=== PATIENT | female | born 1990 | race Two or more races ===

== ENCOUNTER 2024-12-05 14:40 | Outpatient (CLI) | payer MEDICAID ==
[2024-12-05 15:00] LABS: Hematocrit 35.1 % (36.0-46.0); Hemoglobin 12.1 g/dL (12.2-16.2); Mean Corpuscular Hemoglobin 29.9 pg (28.0-32.0); Mean Corpuscular Volume 87.0 fL (80.0-100.0); Nucleated Red Blood Cells % 0.0 %
[2024-12-06 20:07] LABS: Chlamydia Trachomatis, NAA Negative (Negative); Neisseria gonorrhoeae, NAA Negative (Negative)
== END 2024-12-05 17:00 | disposition home or self-care (01) ==
LOC: LAB 14:40
DX: O09.893 Supervision of other high risk pregnancies, third trimester (principal); Z36.89 Encounter for other specified antenatal screening; Z3A.00 Weeks of gestation of pregnancy not specified
CPT/HCPCS: 36415; 85025; 86780

== ENCOUNTER 2024-12-28 09:57 | Observation (INO) | payer MEDICAID ==
[2024-12-28] MEDS ORDERED: PREN-96 PO (10:49)
--- NOTE | 2024-12-28 11:08 | DVH ---
BIOPHYSICAL PROFILE HISTORY: Low SHUKRI TECHNIQUE: Multiple transabdominal real-time grayscale sonographic images through the gravid uterus o f the fetus with duplex doppler color flow and M-mode spectral analysis FINDINGS: BIOPHYSICAL PROFILE: breathing score: 2 movement score: 2 tone score: 2 Quantitative SHUKRI score: 2 (SHUKRI: 12.9 cm.) Total score: 8/8 Single live fetus in cephalic presentation. heart rate 134 beats per minute. Anterior placenta without previa or abruption Biophysical profile score 8/8 corresponding to an HILLARY of 01/13/25 IMPRESSION: Biophysical profile score: 8/8
--- NOTE | 2024-12-28 13:59 | DVHDS2 ---
Physician Discharge Progress N Final Diagnosis: Suspected low SHUKRI, not found Operations or Procedures: Operations or Procedures NST/BPP/SHUKRI all WNL NOT in labor Condition on Discharge: Stable Disposition: Home Discharge Instructions: Diet: Regular Activity: No Restrictions, As Tolerated Follow Up/Referral: as scheduled. Medications: na Follow Up Care: Discharge Statement: "Patient was advised to return to the ER or call 911 if any headaches, dizziness, shortness of breath, chest pain, abdominal pain, bleeding, fevers, or worsening of medical condition. Patient was counseled about treatment plan, medications, possible side effects, patientverbalized understanding. All questions were answered to the best of my ability. This discharge took greater then 30 minutes in planning, reviewing documentation, counseling the patient, and discussing with other team members." Visit Coding OBGYN Date of Service: Dec 28, 2024 Billing Provider: PELON BERNARD DO BRAND MANAGER Common Visit Codes: [id number] INP/OBS CARE(MOD) BRAND MANAGER Procedure Codes: 41267-99- NON-STRESS TEST PELON BERNARD DO Dec 28, 2024 13:59
== END 2024-12-28 11:04 | disposition home or self-care (01) ==
LOC: LDRP 09:57
PROVIDERS: ADMIT Obstetrics & Gynecology; ATTEND Obstetrics & Gynecology
DX: Z36.89 Encounter for other specified antenatal screening (principal); Z3A.36 36 weeks gestation of pregnancy; Z98.890 Other specified postprocedural states; Z79.899 Other long term (current) drug therapy
CPT/HCPCS: 76819; G0378; 59025

== ENCOUNTER 2025-01-08 09:33 | Inpatient (IN) | payer MEDICAID ==
[~2025-01-08] VITALS: Ht 157.5 cm; Wt 78.9 kg
[~2025-01-08 09:33] MED LIST: PREN-96 PO
[2025-01-08] MEDS ORDERED: DERMOPLAST 60ML BOTTLE TOP PRN (10:00)
[2025-01-08] MEDS ORDERED: LIDOCAINE 2%HCL (LOCAL ANESTH.) INJ 20ML MDV IJ PRN (10:00)
[2025-01-08] MEDS ORDERED: WITCH HAZEL-GLYCERIN PAD TOP PRN (10:00)
[2025-01-08] MEDS ORDERED: BUTORPHANOL TARTRATE 2 MG/1 ML VIAL IV PRN ×2 (10:00)
[2025-01-08] MEDS ORDERED: PHISODERM TOP SOLN 240ML BTL TOP PRN (10:00)
[2025-01-08 10:40] LABS: Hematocrit 37.0 % (36.0-46.0); Hemoglobin 12.6 g/dL (12.2-16.2); Mean Corpuscular Hemoglobin 30.0 pg (28.0-32.0); Mean Corpuscular Volume 87.8 fL (80.0-100.0); Nucleated Red Blood Cells % 0.0 %
[2025-01-08 10:46] LABS: Urine Protein, UAD Negative (Negative)
[2025-01-08 10:54] LABS: Amphetamine Screen, Urine Neg (NEGATIVE); Barbiturate Scree,Urine Neg (NEGATIVE); Benzodiazephine Screen, Urine Neg (NEGATIVE); Cannabinoid Screen, Urine Neg (NEGATIVE); Cocaine Screen, Urine Neg (NEGATIVE); Opiate Scree,Urine Neg (NEGATIVE); Phencyclidine Screen, Urine Neg (NEGATIVE)
[2025-01-08 10:55] LABS: Alanine Aminotransferase 16 U/L (7-40); Albumin 4.0 g/dL (3.2-4.8); Anion Gap 10 (5-15); BUN/Creatinine Ratio 9.4 (10.0-20.0); Calcium 9.0 mg/dL (8.7-10.4); Carbon Dioxide 25 mmol/L (20-31); Chloride 104 mmol/L (98-107); Glucose 95 mg/dL (74-106); Potassium 3.8 mmol/L (3.5-5.1); Sodium 139 mmol/L (136-145); Total Protein 6.6 g/dL (5.7-8.2)
[2025-01-08 10:56] LABS: Alkaline Phosphatase 117 U/L (46-116); Bilirubin, Total 0.4 mg/dL (0.2-1.0); Blood Urea Nitrogen 6 mg/dL (9-23)
[2025-01-08 10:59] LABS: INR 0.92 (0.9-1.15); Partial Thromboplastin Time 26.4 SEC (24.5-34.5); Prothrombin Time 9.8 sec (9.3-11.8)
[2025-01-08] MEDS: LACTATED RINGER'S 1,000 ML IV SCH (11:35)
--- NOTE | 2025-01-08 14:03 | DVHHP2 ---
OB CC & HPI Date Date of Admission: Jan 08, 2025 Patient Identification: : 3 Para: 2 EDC: Jan 14, 2025 EGA: 39wks Chief Complaints: Reason for admission: induction of labor Indication for : other Admission Nurse Assessment Rev: No History of Present Complaints pt is admitted for iol for borderline low sterling,denies rom or vag bleeding Past Medical History Cardiac: No pertinent Hx Pulmonary: No pertinent Hx Central Nervous System: No pertinent Hx GI: No pertinent Hx Hemotology/Oncology: No pertinent Hx Hepatobiliary: No pertinent Hx Psychiatric: No pertinent Hx Musculoskeletal: No pertinent Hx Rheumotologic: No pertinent Hx Infectious Disease: No peritnent Hx ENT: No pertinent Hx Renal/: No pertinent Hx Endocrine: No pertinent Hx Dermatology: No pertinent Hx Past Surgical History: No pertinent Hx OB History OB History Care: Good Care Ultrasounds: Normal mid trimester US Obstetrical Complications: None Medical Complications: None Allergies: Coded Allergies: NO KNOWN ALLERGIES (Unverified , 01/08/25) Home Meds Reported Medications Vit W/ Ferrous Fumara ( One Daily) Daily Tab, 1 TAB PO DAILY, #90 TAB 3 Refills 12/28/24 Current Medications Current Medications Medications (Trade) Dose Ordered Sig/Cally Route PRN Reason Start Time Stop Time Status Last Admin Lactated Ringer's 1,000 ml @ 125 mls/hr Q8H IV 01/08/25 10:00 01/08/25 11:35 Witch Lotus (Tucks) 1 pad PRN PRN TOP PERINEAL AREA DISCOMFORT 01/08/25 10:00 Sodium Lauryl Sulfate (Phisoderm) 240 ml PRN PRN TOP PERINEAL AREA DISCOMFORT 01/08/25 10:00 Benzocaine (Dermoplast) 1 applic PRN PRN TOP PERINEAL AREA DISCOMFORT 01/08/25 10:00 Butorphanol Tartrate (Stadol Injection) 1 mg Q4HPRN PRN IV MODERATE PAIN (4-6 PAIN SCALE) 01/08/25 10:00 Butorphanol Tartrate (Stadol Injection) 2 mg Q4HPRN PRN IV SEVERE PAIN (7-10 PAIN SCALE) 01/08/25 10:00 Lidocaine HCl (Xylocaine) 20 ml ONCE PRN IJ PERINEAL AREA DISCOMFORT 01/08/25 10:00 Misoprostol (Cytotec) 50 mcg Q4HPRN PRN PO CERVICAL RIPENING 01/08/25 11:00 01/08/25 11:34 Family & Social History Family/Social History Blood Type: Unknown Rubella: unknown RPR/VDRL: Negative GBS Status: Negative HBsAG: Negative Review of Systems Constitutional: No symptom reported Ears, Nose, & Throat: No symptom reported Eyes: No symptom reported Pulmonary/Respiratory: No symptom reported Cardiovascular: No symptom reported Gastrointestinal: No symptom reported Genitourinary: No symptom reported Musculoskeletal: No symptom reported Skin: No symptom reported Psychiatric: No symptom reported Endocrine: No symptom reported Hemotologic/Lymphatic: No symptom reported OB Admission Exam Physical Exam HEENT: TMs Normal, Fontanelles Normal, Nasal Mucosa Normal, Eyes non-injected, Oropharynx Normal, PERRLA, Moist Membranes, EOMI Heart: Rhythm Normal Lungs: Clear Abdomen: Non tender Extremities: Normal Reflexes: Normal Cervical Dilatation: Fingertip Effacement: 25% Station: -2 Membranes: Intact Heart Rate: 130's Accelerations: Accelerations Present Decelerations: No Decelerations Short Term Variability: Present Finance Analyst Variability: Average (6-25) Contractions on Admission: >10 Minutes Apart Intensity: Mild OB Plan Plan Admitting Diagnosis: Induction of labor Plan: Induction Induction Methd: Misoprostol protocol Other Plan: informed consent obtained Visit Coding OBGYN Date of Service: Jan 08, 2025 Billing Provider: MERLY TREVINO DO CERTIFIED COURT INTERPRETER Common Visit Codes: [id number] OBS CARE (HIGH) CERTIFIED COURT INTERPRETER Procedure Codes: 53315-17- NON-STRESS TEST MERLY TREVINO DO Jan 08, 2025 14:02
--- NOTE | 2025-01-08 14:15 | DVHPN2 ---
Chief Complaints Patient reports: No new complaints Nursing reports: No new complaints Objective Medications Current Medications Medications (Trade) Dose Ordered Sig/Cally Route PRN Reason Start Time Stop Time Status Last Admin Benzocaine (Dermoplast) 1 applic PRN PRN TOP PERINEAL AREA DISCOMFORT 01/08/25 10:00 Butorphanol Tartrate (Stadol Injection) 1 mg Q4HPRN PRN IV MODERATE PAIN (4-6 PAIN SCALE) 01/08/25 10:00 Butorphanol Tartrate (Stadol Injection) 2 mg Q4HPRN PRN IV SEVERE PAIN (7-10 PAIN SCALE) 01/08/25 10:00 Lactated Ringer's 1,000 ml @ 125 mls/hr Q8H IV 01/08/25 10:00 01/08/25 11:35 Lidocaine HCl (Xylocaine) 20 ml ONCE PRN IJ PERINEAL AREA DISCOMFORT 01/08/25 10:00 Misoprostol (Cytotec) 50 mcg Q4HPRN PRN PO CERVICAL RIPENING 01/08/25 11:00 01/08/25 11:34 Sodium Lauryl Sulfate (Phisoderm) 240 ml PRN PRN TOP PERINEAL AREA DISCOMFORT 01/08/25 10:00 Witch Lotus (Tucks) 1 pad PRN PRN TOP PERINEAL AREA DISCOMFORT 01/08/25 10:00 Others ve-unchanged Studies Laboratory Tests 01/08/25 10:10 Test 01/08/25 10:10 Range/Units Serum Glucose 95 74-106 mg/dL Ass/Plan Assessment iol for borderline sterling Plan rec one cytotec supportive care Visit Coding OBGYN Date of Service: Jan 08, 2025 Billing Provider: MERLY TREVINO DO PHOTONICS ENGINEERING TECHNOLOGIST Common Visit Codes: [id number] OBS CARE (HIGH) PHOTONICS ENGINEERING TECHNOLOGIST Procedure Codes: 72509-34- NON-STRESS TEST MERLY TREVINO DO Jan 08, 2025 14:15
--- NOTE | 2025-01-08 19:13 | DVH ---
EXAM: US BIOPHYSICAL PROFILE HISTORY: Low SHUKRI COMPARISON: US BIOPHYSICAL PROFILE on DOS: 12/28/24 TECHNIQUE: Multiple transabdominal real-time grayscale sonographic images through the gravid uterus of the fetus with duplex Doppler color flow and M-mode spectral analysis Findings/Impression: Single live intrauterine in vertex presentation with heart rate of 141 bpm. Biophysical profile was performed with 2 points for respirations, 2 points for movement, 2 points for tone and 2 points for amniotic fluid index. Biophysical profile score of 8/8. Amniotic fluid is within normal limits with SHUKRI 11.3 cm and MVP 4.0 cm. Nuchal cord. Normal SHUKRI (5-25 cm) Normal MVP (2-8 cm)
--- NOTE | 2025-01-09 12:28 | DVHDS2 ---
Physician Discharge Progress N Final Diagnosis: failed induction 39wks Operations or Procedures: Operations or Procedures nst,labs,sono Commentary: Commentary failed induction,will go home and return in one day Condition on Discharge: Good Disposition: Home Discharge Instructions: Diet: Regular Activity: No Restrictions, As Tolerated Medications: na Follow Up Care: Specialist: 1d Discharge Statement: "Patient was advised to return to the ER or call 911 if any headaches, dizziness, shortness of breath, chest pain, abdominal pain, bleeding, fevers, or worsening of medical condition. Patient was counseled about treatment plan, medications, possible side effects, patientverbalized understanding. All questions were answered to the best of my ability. This discharge took greater then 30 minutes in planning, reviewing documentation, counseling the patient, and discussing with other team members." Visit Coding OBGYN Date of Service: Jan 08, 2025 Billing Provider: MERLY TREVINO DO LAND DEPARTMENT HEAD Common Visit Codes: [id number] OBS CARE (HIGH) LAND DEPARTMENT HEAD Procedure Codes: 37544-38- NON-STRESS TEST MELRY TREVINO DO Jan 09, 2025 12:28
== END 2025-01-08 20:05 | disposition home or self-care (01) | DRG 566 ==
LOC: LDRP 09:33
PROVIDERS: ADMIT Obstetrics & Gynecology; ATTEND Obstetrics & Gynecology
PROC: 3E0DXGC Introduction of Other Therapeutic Substance into Mouth and Pharynx, External Approach (ICD-10-PCS; principal; 2025-01-08)
DX: O41.8X30 Other specified disorders of amniotic fluid and membranes, third trimester, not applicable or unspecified (principal); O61.9 Failed induction of labor, unspecified; Z3A.39 39 weeks gestation of pregnancy
CPT/HCPCS: 36415; 59025; 76819; 80053; 80307; 81001; 85025; 85610; 85730; 86780; 86803; 86850; 86900; 86901; 94762; 96360; 96361; G0378

== ENCOUNTER 2025-01-08 23:03 | Inpatient (IN) | payer MEDICAID ==
[~2025-01-08] VITALS: Ht 160 cm; Wt 68.0 kg
[2025-01-08] MEDS ORDERED: LACT. RINGERS/OXYTOCIN 20UNITS 500 ML IV ONE ×2 (23:15→23:45)
[2025-01-08] MEDS ORDERED: NALBUPHINE HCL 10 MG/1ml INJECTION IV PRN (23:15)
[2025-01-09] MEDS ORDERED: METHYLERGONOVINE MALEATE 0.2 MG/ML AMP IM ONE (00:09)
[2025-01-09] MEDS: WITCH HAZEL-GLYCERIN PAD TOP PRN (00:56)
[2025-01-09] MEDS: PHISODERM TOP SOLN 240ML BTL TOP PRN (00:57)
[2025-01-09] MEDS: DERMOPLAST 60ML BOTTLE TOP PRN (00:57)
[2025-01-09] MEDS: LIDOCAINE 2%HCL (LOCAL ANESTH.) INJ 20ML MDV IJ PRN (00:57)
[2025-01-09] MEDS ORDERED: CARBOPROST TROMETHAMINE 250 MCG/1ML VIAL IM ONE (01:00)
[2025-01-09] MEDS: METHYLERGONOVINE MALEATE 0.2 MG/ML AMP IM ONE (01:00)
[2025-01-09] MEDS: ONDANSETRON HCL 4 MG/2 ML VIAL IV PRN (01:08)
[2025-01-09] MEDS ORDERED: DIPHENOXYLATE W/ATROPINE 2.5 MG TAB PO ONE (01:30)
[2025-01-09] MEDS ORDERED: DIPHENOXYLATE W/ATROPINE 2.5 MG TAB ONE (01:30)
--- NOTE | 2025-01-09 02:05 | DVHHP2 ---
OB CC & HPI Date Date of Admission: Jan 08, 2025 Patient Identification: : 3 Para: 2 EDC: Jan 14, 2025 EGA: 39w2d Chief Complaints: Reason for admission: active labor History of Present Complaints Shweta Andrews is a 34 year old with IUP at 39w2d presenting SROM and in active labor. Patient was IOL (01/08) for low SHUKRI that was sent home at 1945 after 2 doses of misoprostol PO and no cervical change. Patient states that her water broke around 2245 and was clear fluid. She is maryjane every 2 minutes and feeling an urge to push Past Medical History Cardiac: No pertinent Hx Pulmonary: No pertinent Hx Central Nervous System: No pertinent Hx GI: No pertinent Hx Hemotology/Oncology: No pertinent Hx Hepatobiliary: No pertinent Hx Psychiatric: No pertinent Hx Musculoskeletal: No pertinent Hx Rheumotologic: No pertinent Hx Infectious Disease: No peritnent Hx ENT: No pertinent Hx Renal/: No pertinent Hx Endocrine: No pertinent Hx Dermatology: No pertinent Hx Past Surgical History: No pertinent Hx OB History OB History Care: Good Care Ultrasounds: Normal mid trimester US Obstetrical Complications: None Medical Complications: None Allergies: Coded Allergies: NO KNOWN ALLERGIES (Unverified , 01/08/25) Home Meds Reported Medications Vit W/ Ferrous Fumara ( One Daily) Daily Tab, 1 TAB PO DAILY, #90 TAB 3 Refills 12/28/24 Current Medications Current Medications Medications (Trade) Dose Ordered Sig/Cally Route PRN Reason Start Time Stop Time Status Last Admin Lactated Ringer's 1,000 ml @ 125 mls/hr Q8H IV 01/08/25 23:15 Nalbuphine HCl (Nubain) 10 mg Q4HP PRN IV MODERATE PAIN (4-6 PAIN SCALE) 01/08/25 23:15 Witch Lotus (Tucks) 1 pad PRN PRN TOP PERINEAL AREA DISCOMFORT 01/08/25 23:15 01/09/25 00:56 Sodium Lauryl Sulfate (Phisoderm) 240 ml PRN PRN TOP PERINEAL AREA DISCOMFORT 01/08/25 23:15 01/09/25 00:57 Benzocaine (Dermoplast) 1 applic PRN PRN TOP PERINEAL AREA DISCOMFORT 01/08/25 23:15 01/09/25 00:57 Lidocaine HCl (Xylocaine) 20 ml ONCE PRN IJ PERINEAL AREA DISCOMFORT 01/08/25 23:15 01/09/25 00:57 Ondansetron HCl (Zofran) 4 mg Q4HP PRN IV NAUSEA / VOMITING 01/09/25 01:00 01/09/25 01:08 Diphenoxylate HCl/ Atropine (Lomotil Tablet) 10 mg Q12HR PO 01/09/25 10:00 01/09/25 01:23 DC Family & Social History Family/Social History Blood Type: O+ Rubella: not immune RPR/VDRL: Negative GBS Status: Negative HBsAG: Negative Review of Systems Constitutional: No symptom reported Ears, Nose, & Throat: No symptom reported Eyes: No symptom reported Pulmonary/Respiratory: No symptom reported Cardiovascular: Lt Headedness Gastrointestinal: No symptom reported Genitourinary: No symptom reported Musculoskeletal: No symptom reported Skin: No symptom reported Psychiatric: No symptom reported Endocrine: No symptom reported Hemotologic/Lymphatic: No symptom reported OB Admission Exam Physical Exam Vitals: VSS. See CPN HEENT: Nasal Mucosa Normal, Oropharynx Normal, PERRLA, Moist Membranes Heart: Rhythm Normal Lungs: Clear Abdomen: Gravid Extremities: Normal Reflexes: Normal Cervical Dilatation: 6cm Membranes: Ruptured Amniotic Fluid: Clear Accelerations: Accelerations Present Decelerations: Variable Decelerations Condominium Property Manager Variability: Average (6-25) Contractions on Admission: < 5 Minutes Apart Intensity: Firm OB Plan Plan Admitting Diagnosis: -34 yo , IUP at 39w2d -SROM and in labor -Category 2 Tracing -GBS negative Plan: Expectant Management Other Plan: PLAN: -Plan of care and plan discussed with Patient -Process, Risks, benefits, of available management options discussed. Informed Consent obtained -Consent for possible blood transfusion obtained. -All questions answered. -Admit to Place for Labor -Routine L&D Admission orders -EFM per policy. -Supportive care as needed -Anticipate imminent Visit Coding OBGYN Date of Service: Jan 08, 2025 Billing Provider: AGUSTO CASILLAS CNM CLASSIFIER TENDER Common Visit Codes: [id number] INP/OBS CARE (HIGH) CLASSIFIER TENDER Procedure Codes: 43093-46- NON-STRESS TEST AGUSTO CASILLAS CNM Jan 09, 2025 02:04
--- NOTE | 2025-01-09 02:10 | LDN2 ---
Labor and Delivery Note Date 01/08/25 Age 34 3 Para 2->3 EDC 01/14/25 EGA 39w2d Diagnosis Vaginal Delivery: VTX Vacuum Assisted: No Placenta: Spontaneous (lulu) Sex: Female Weight pending Apgars Nuchal Cord Transected: Yes Amniotic Fluid: Clear (terminal meconium at dleivery) Episiotomy: No Extension: Yes (2nd degree perineal) Repaired with 3-[address]-1 EBL 200mL in drape Labs Blood Bank 01/08/25 10:10: Blood Type O POSITIVE Comments/Significant Med Devora At 2357 this 34yo now delivered a viable Female infant by w/ APGARS . MISSY. stimulated and cried vigorously, placed skin to skin on pts chest. Cord clamped and cut after 60 seconds. Baby taken to warmer by RN and RT for further evaluation of retractions. Cord blood sent. Intact 3-vessel cord and intact placenta (Lulu), delivered spontaneously Pitocin IV bolus started. Placenta sent to pathology. TXA, misoprostol 800mcg, and methergine IM given for additional bleeding. Cervix inspected and intact. Local lidocaine injected into vagina and perineum. Second degree perineal laceration present which was repaired with 3-0 vicryl suture in the usual fashion. Rectal mucosa and sphincter intact. Fundus at U, firm, midline, and light to moderate lochia. Straight catheter for 150 mL of clear urine. QBL 200ml in drape. VSS. Count correct x2. Patient to care and baby to nursery for further evaluation. Visit Coding OBGYN Date of Service: Jan 09, 2025 Billing Provider: AGUSTO CASILLAS CNM SIFTING OPERATOR Common Visit Codes: [id number] INP/OBS CARE(HIGH) SIFTING OPERATOR Procedure Codes: [id number] DEL INCLUDING AGUSTO CASILLAS CNM Jan 09, 2025 02:10
[2025-01-09 03:00] VITALS: BP 114/73; PULSE 103; RESP 18; TEMP 100; O2SAT 95
[2025-01-09] MEDS: IBUPROFEN 600 MG TAB PO PRN (03:06)
[2025-01-09] MEDS: ACETAMINOPHEN 325 MG TAB PO PRN (04:46)
[2025-01-09] MEDS: LACTATED RINGER'S 1,000 ML IV SCH (04:51)
[2025-01-09 07:01] VITALS: BP 107/81; PULSE 84; RESP 15; TEMP 98.5; O2SAT 96
[2025-01-09] MEDS ORDERED: DIPHENOXYLATE W/ATROPINE 2.5 MG TAB PO SCH (10:00)
[2025-01-09 11:00] VITALS: BP 94/59; PULSE 97; RESP 16; TEMP 98.6; O2SAT 99
[2025-01-09 14:45] VITALS: BP 97/63; PULSE 79; RESP 20; TEMP 98.4; O2SAT 96
[2025-01-09 18:30] VITALS: BP 104/64; PULSE 81; RESP 17; TEMP 98.6; O2SAT 96
[2025-01-09] MEDS: DOCUSATE SOD 100 MG CAP PO SCH (21:54)
[2025-01-09 23:15] VITALS: BP 93/57; PULSE 16; RESP 17; TEMP 97.9; O2SAT 96
--- NOTE | 2025-01-10 01:21 | DVHPN2 ---
Progress Note Date Seen: Jan 10, 2025 Subjective Patient resting in bed. Baby in nursery getting bath SUBJECTIVE -Lochia minimal -Tolerating regular diet well. -Ambulating and voiding well w/o feeling lightheaded or dizzy. -Passing flatus but no BM yet -Breast feeding. - Contraceptive plan: Does not want to use BC -Desires and requests to be discharged home today (01/10) vital signs Vital Sign Date Time Temp Pulse Resp B/P (MAP) Pulse Ox O2 Delivery O2 Flow Rate FiO2 01/09/25 23:15 97.9 16 17 93/57 (69) 96 97.9 01/09/25 18:30 Room Air 0.0 Total Intake and Output 01/09/25 01/09/25 01/10/25 15:00 23:00 07:00 Output Total 400 ml Balance -400 ml medications Current Medications Medications Dose Ordered Sig/Cally Route Start Time Stop Time Status Last Admin Dose Admin Nalbuphine HCl 10 mg Q4HP PRN IV 01/08/25 23:15 Cancel Witch Lotus 1 pad PRN PRN TOP 01/08/25 23:15 01/09/25 00:56 1 PAD Sodium Lauryl Sulfate 240 ml PRN PRN TOP 01/08/25 23:15 01/09/25 00:57 240 ML Benzocaine 1 applic PRN PRN TOP 01/08/25 23:15 01/09/25 00:57 1 APPLIC Ondansetron HCl 4 mg Q4HP PRN IV 01/09/25 01:00 01/09/25 01:08 4 MG Ibuprofen 600 mg Q6HP PRN PO 01/09/25 02:30 01/09/25 16:15 600 MG Acetaminophen 650 mg Q4HP PRN PO 01/09/25 02:30 01/09/25 21:54 650 MG Docusate Sodium 200 mg HS PO 01/09/25 22:00 01/09/25 21:54 200 MG Objective OBJECTIVE -A&O x4. No apparent distress. Affect appropriate -Afebrile, VSS -Chest: heart and lung sounds normal. -Breasts: Nipples intact w/o cracks or soreness -Abdomen: normal BS, soft, non-tender, no rebound or guarding, fundus firm @ U- 1, lochia minimal -Perineum:- no edema, or erythema, Incision site with sutures intact, edges in good approximation. -Extremities: no edema or tenderness Problems(with codes): (1) (normal spontaneous vaginal delivery) (2) Second degree perineal laceration Assessment/Plan ASSESSMENT -34 yo now ppd #1 s/p doing well. -Blood Type: O+ -Breast feeding -Rubella Equivocal PLAN -Continue pain management with oral medications as previously ordered -Increase fluid intake and fiber in diet to promote regular bowel movements, Laxative PRN -Encouraged patient to continue taking vitamin and iron -Give MMR immunization if patient desires -Educated patient on self care and warning signs of PPH, PPD, and pre-eclampsia. Discussed unpredictability of ovulation during months and optimal intervals. Answered all pt questions and concerns -Continue routine care and anticipate discharge today Plan discussed with: Patient Visit Coding OBGYN Date of Service: Jan 10, 2025 Billing Provider: AGUSTO CASILLAS CNM DATA MINING ANALYST Common Visit Codes: [id number] INP/OBS CARE(HIGH) AGUSTO CASILLAS CNM Jan 10, 2025 01:21
--- NOTE | 2025-01-10 01:23 | DVHDS2 ---
Obstetrics Discharge Summary Obstetrics Discharge Summary Date of Admission: Jan 08, 2025 Date of Discharge: Jan 10, 2025 Reason For Admission: Onset of Labor Intrapartum Procedures: Spontaneous vaginal deliv Operative Complicat: Laceration (second degree perineal) Discharge Diagnosis: Term -Delivered Discharge Information: Activity (Unrestricted. Advance as tolerated. Balance activities with rest periods. No heavy lifting, pushing or straining. Pelvic rest x 6 weeks), Diet (Routine), Medications (Ibuprofen 600mg every 6 hours as needed for pain. Colace 100mg twice a day as needed to keep bowel movements soft and prevent constipation. Continue Vitamin and iron), Discharge to ([facility]), Discarge date (01/10/25) Discharge Care Plan Instructions - self care instructions given - emergency signs and symptoms including but not limited to pre-eclampsia precautions and signs of infection, PPH & of PPD reviewed with patient. -Follow up with OB Provider in 2 weeks and again at 6 weeks Visit Coding OBGYN Date of Service: Jan 10, 2025 Billing Provider: AGUSTO CASILLAS CNM NITROGEN OPERATOR Common Visit Codes: [id number]-WRL/OBS DISCH DAY >30MIN AGUSTO CASILLAS CNM Jan 10, 2025 01:23
[2025-01-10] MEDS ORDERED: IBU600T PO ×2 (01:24)
[2025-01-10] MEDS ORDERED: DOCU-94 PO ×2 (01:24)
[2025-01-10 03:00] VITALS: BP 108/72; PULSE 66; RESP 17; TEMP 97.9; O2SAT 98
[2025-01-10 07:02] VITALS: BP 98/68; PULSE 74; RESP 17; TEMP 98.2; O2SAT 96
[2025-01-10 11:00] VITALS: BP 110/76; PULSE 82; RESP 17; TEMP 98.4; O2SAT 97
[2025-01-10 14:58] VITALS: BP 101/69; PULSE 85; RESP 18; TEMP 98; O2SAT 95
[2025-01-10] MEDS: MEASLES, MUMPS & RUBELLA VAC(MMRII) 0.5ML SC ONE (18:30)
[2025-01-10 19:00] VITALS: BP 117/62; PULSE 87; RESP 16; TEMP 98.2; O2SAT 95
== END 2025-01-10 19:16 | disposition home or self-care (01) | DRG 560 ==
LOC: LDRP 23:03 → OBSVTOIN 23:03 → LDRP 01-09 04:45
PROVIDERS: ADMIT Obstetrics & Gynecology; ATTEND Obstetrics & Gynecology
PROC: 0KQM0ZZ Repair Perineum Muscle, Open Approach (ICD-10-PCS; principal; 2025-01-08)
PROC: 10E0XZZ Delivery of Products of Conception, External Approach (ICD-10-PCS; 2025-01-08)
PROC: 3E0DXGC Introduction of Other Therapeutic Substance into Mouth and Pharynx, External Approach (ICD-10-PCS; 2025-01-08)
DX: O77.0 Labor and delivery complicated by meconium in amniotic fluid (principal); Z37.0 Single live birth; O69.81X0 Labor and delivery complicated by cord around neck, without compression, not applicable or unspecified; O70.1 Second degree perineal laceration during delivery; Z3A.39 39 weeks gestation of pregnancy
CPT/HCPCS: 36415; 59025; 59409; 76819; 80053; 80307; 81001; 82962; 85025; 85610; 85730; 86780; 86803; 86850; 86900; 86901; 94760; 94762; 96360; 96361; 96372; G0378; J2405; J7060